=== PATIENT | female | born 1970 | race Caucasian/White ===

== ENCOUNTER → 2025-05-03 | Day surgery (SDC) | payer MEDICAID ==
[~2025-05-03] VITALS: Ht 170.2 cm; Wt 105.7 kg
[~2025-05-03] MED LIST: ACETAMINOPHEN 1,000MG/100ML PREMIX IV PRN; ACETAMINOPHEN 1000MG/100ML 100 ML IV PRN; BUPIVACAINE HCL/PF 0.5% (5MG/ML) 10ML ONE; CEFAZOLIN SODIUM 1000MG/VIAL ONE; FAMOTIDINE 20MG/2ML VIAL IV ONE; FAMOTIDINE 20MG/2ML VIAL IV PRN; FENTANYL CITRATE/PF 50MCG/ML 2ML VIAL ONE; HYDRALAZINE 20MG/ML VIAL IV PRN; HYDROMORPHONE HCL/PF 1MG/ML INJ IV PRN; HYDROMORPHONE HCL/PF 2MG/ML INJ ONE; LABETALOL 5MG/ML 4ML INJ IV PRN; LORAZEPAM 2MG/ML UD SYRINGE IV PRN; MEPERIDINE HCL/PF 25MG/ML CPJ IV PRN; METOCLOPRAMIDE HCL 10MG/2ML VIAL ONE; MIDAZOLAM HCL 2 MG/2 ML VIAL ONE; OMEP20CA14 PO; ONDANSETRON HCL 4MG/2ML INJ IV PRN; ONDANSETRON HCL 4MG/2ML INJ ONE; PROPOFOL 200MG/20ML VIAL IV ONE; SKIN ADHESIVE 0.7 GM EA TOP ONE
[2025-05-03] MEDS: LACTATED RINGERS 1,000 ML IV SCH (08:43)
== END | disposition home or self-care (01) ==
LOC: OR 06:38
PROVIDERS: ATTEND Surgery
DX: D17.1 Benign lipomatous neoplasm of skin and subcutaneous tissue of trunk (principal); K21.9 Gastro-esophageal reflux disease without esophagitis; Z79.899 Other long term (current) drug therapy; Z98.890 Other specified postprocedural states
CPT/HCPCS: 21932; 21931 ×2; 21930; J3010; J0665; J0690; J1308; J2765; J2250; J2405; J2704; J1171